=== PATIENT | female | born 1965 | race Caucasian/White ===

== ENCOUNTER → 2021-05-01 | Outpatient (CLI) | payer MEDICARE, OTHER ==
[2021-05-01 23:08] LABS: Basophils # (A) 0.07 X 10*3/uL (0.00-0.10); Basophils % (A) 0.9 %; Eosinophils # (A) 0.17 X 10*3/uL (0.04-0.35); Eosinophils % (A) 2.2 %; HGB 12.2 g/dL (12.0-15.0); Lymphocytes # (A) 3.86 X 10*3/uL (0.90-5.00); Lymphocytes % (A) 49.5 %; MCHC 30.5 g/dL (32.0-37.0); MCV 98.3 fL (80.0-97.0); Mean Platelet Volume 11.7 fL (9.5-12.2); Monocytes # (A) 0.42 X 10*3/uL (0.20-1.00); Monocytes % (A) 5.4 %; Neutrophils # (A) 3.25 X 10*3/uL (1.80-7.70); Neutrophils % (A) 41.6 %; Platelet Count 288 X 10*3/uL (140-440); RBC 4.07 X 10*6/uL (4.10-5.20); RDW 13.2 % (11.5-14.5)
[2021-05-02 01:21] LABS: African American GFR (CKD) 66.4 (60.0-200.0); Albumin 4.3 g/dL (3.80-4.90); Albumin/Globulin Ratio 1.65 (1.60-3.17); Anion Gap 9.6 mmol/L (4.00-12.00); BUN/Creat Ratio 12.73 Ratio (12.00-20.00); Calcium 9.7 mg/dL (8.7-10.3); Carbon Dioxide 23.4 mmol/L (21.6-31.8); Globulin 2.6 g/dL (1.6-3.3); Non-African American GFR(CKD) 57.3 (60.0-200.0); Potassium 4.4 mmol/L (3.5-5.5); Total Bilirubin 0.3 mg/dL (0.3-1.2); Total Protein 6.9 g/dL (6.2-8.2)
== END | disposition home or self-care (01) ==
LOC: LABWHC1 14:41
PROVIDERS: ATTEND Nurse Practitioner
DX: R10.9 Unspecified abdominal pain (principal)
CPT/HCPCS: 36415; 80053; 85025

== ENCOUNTER 2021-07-17 09:59 | Day surgery (SDC) | payer MEDICARE, OTHER ==
[2021-07-12 13:04] VITALS: BMI 27.4
[~2021-07-17 09:59] MED LIST: LACTATED RINGERS 1,000 ML IV SCH; LIDOCAINE 1% (10MG/ML) FOR IV START INTRADERMA PRN
[2021-07-17 10:26] VITALS: RESP 16; TEMP 97.7
[2021-07-17 10:39] LABS: Glucose,Whole Blood 192 mg/dL (75-99)
[2021-07-17] MEDS ORDERED: PROPOFOL 10 MG/ML 20 ML VIAL IV ONE (11:39)
[2021-07-17] MEDS ORDERED: LIDOCAINE 1% INJ 10MG/ML (20 ML MDV) ONE (11:39)
--- NOTE | 2021-07-17 11:48 | P.GSHP ---
History of Present Illness H&P Date: 07/17/21 Chief Complaint: GERD This a 55-year-old female who presents today for EGD. She's had some complaints of GERD. Past Medical History Past Medical History: Diabetes Mellitus, GERD/Reflux, Sleep Apnea/CPAP/BIPAP Additional Past Medical History / Comment(s): C-PAP History of Any Multi-Drug Resistant Organisms: None Reported Past Surgical History: Section Additional Past Surgical History / Comment(s): Ovary removed Past Anesthesia/Blood Transfusion Reactions: No Reported Reaction Past Psychological History: Anxiety, Depression Smoking Status: Former smoker Past Alcohol Use History: Daily Additional Past Alcohol Use History / Comment(s): QUIT SMOKING FEBRUARY 2021, HX OF 1PPD., STARTED SMOKING AGE 15. STATES 2-3 BEERS DAY. Past Drug Use History: Marijuana Additional Drug Use History / Comment(s): HX CRACK COCAINE., CURRENT MARIJUANA USE. - Past Family History Father Family Medical History: Cancer Additional Family Medical History / Comment(s): LUNG CANCER Medications and Allergies Home Medications Medication Instructions Recorded Confirmed Type Atorvastatin [Lipitor] 40 mg PO DAILY 07/12/21 07/17/21 History DULoxetine HCL [Cymbalta] 60 mg PO BID 07/12/21 07/17/21 History Fenofibrate Nanocrystallized 145 mg PO DAILY 07/12/21 07/17/21 History [Fenofibrate] Gabapentin [Neurontin] 800 mg PO BID 07/12/21 07/17/21 History Insulin Aspart [NovoLOG Flexpen] 5 units SQ BID-W/MEALS 07/12/21 07/17/21 History Insulin Degludec [Tresiba 15 units SQ HS 07/12/21 07/17/21 History Flextouch U-100] Insulin Degludec [Tresiba 30 units SQ QAM 07/12/21 07/17/21 History Flextouch U-100] Linaclotide [Linzess] 290 mcg PO DAILY 07/12/21 07/17/21 History Metoclopramide [Reglan] 10 mg PO HS 07/12/21 07/17/21 History Pantoprazole Sodium 40 mg PO DAILY 07/12/21 07/17/21 History Stool Softner 1 tab PO DAILY 07/12/21 07/17/21 History buPROPion HCL [Wellbutrin XL] 300 mg PO DAILY 07/12/21 07/17/21 History buPROPion XL [Wellbutrin XL] 150 mg PO DAILY 07/12/21 07/17/21 History metFORMIN HCL [Glucophage] 1,000 mg PO HS 07/12/21 07/17/21 History Allergies Allergy/AdvReac Type Severity Reaction Status Date / Time No Known Allergies Allergy Verified 07/17/21 10:22 Surgical - Exam Vital Signs Temp Pulse Resp BP Pulse Ox 97.7 F 62 16 171/74 93 L 07/17/21 10:25 07/17/21 10:25 07/17/21 10:25 07/17/21 10:25 07/17/21 10:25 - General well developed, well nourished, no distress - Eyes PERRL - ENT normal pinna - Neck no masses - Respiratory normal expansion - Cardiovascular Rhythm: regular - Abdomen Abdomen: soft, non tender Results - Labs Abnormal Lab Results - Last 24 Hours (Table) 07/17/21 Range/Units 10:34 POC Glucose (mg/dL) 192 H (75-99) mg/dL Assessment and Plan Assessment: GERD. We'll perform EGD.
--- NOTE | 2021-07-17 11:50 | P.OP ---
Date of Procedure: 07/17/21 Preoperative Diagnosis: GERD Postoperative Diagnosis: Gastroparesis Antral gastritis Procedure(s) Performed: EGD Anesthesia: MAC Surgeon: Marcio Morris Pathology: other (Antrum) Condition: stable Disposition: PACU Description of Procedure: Patient's placed on the endoscopy table in the lateral position. She received IV sedation. The gastroscope placed oropharynx passed in the esophagus and stomach. Patient had a large amount of retained food. The antrum was visualized. This appeared mildly inflamed. Biopsies performed. Scope was then retroflexed remainder some appeared normal. There is no significant hiatal hernia. The GE junction was at 40 cm. The distal esophagus appeared normal. T he proximal esophagus appeared normal. Scope was withdrawn for patient.
[2021-07-17 12:10] VITALS: BP 131/68; PULSE 69
== END 2021-07-17 12:29 | disposition home or self-care (01) ==
LOC: ORWHC2ENDO 09:59
PROVIDERS: ATTEND Surgery
DX: K31.84 Gastroparesis (principal); K29.50 Unspecified chronic gastritis without bleeding; G47.33 Obstructive sleep apnea (adult) (pediatric); F41.8 Other specified anxiety disorders; Z79.4 Long term (current) use of insulin; E11.43 Type 2 diabetes mellitus with diabetic autonomic (poly)neuropathy; Z80.1 Family history of malignant neoplasm of trachea, bronchus and lung; Z99.81 Dependence on supplemental oxygen; Z87.891 Personal history of nicotine dependence; Z90.721 Acquired absence of ovaries, unilateral
CPT/HCPCS: 88305; 43239; J2001; J2704

== ENCOUNTER 2021-08-02 14:05 | Emergency (ER) | payer MEDICARE, OTHER ==
[2021-08-02] MEDS ORDERED: PANTOPRAZOLE 40 MG/10 ML VIAL IVP STA (14:29)
[2021-08-02] MEDS ORDERED: SODIUM CHLORIDE 0.9% 500 ML 500 ML IV STA (14:29)
[2021-08-02] MEDS ORDERED: ONDANSETRON 4 MG/2 ML VIAL IVP STA (14:29)
[2021-08-02 15:12] LABS: Basophils # (A) 0.1 k/uL (0-0.2); Basophils % (A) 1 %; Eosinophils % (A) 0 %; Lymphocytes # (A) 2.9 k/uL (1.0-4.8); Lymphocytes % (A) 25 %; MCH 32.1 pg (25.0-35.0); MCHC 32.5 g/dL (31.0-37.0); MCV 98.7 fL (80.0-100.0); Mean Platelet Volume 8.3; Monocytes # (A) 0.4 k/uL (0-1.0); Monocytes % (A) 3 %; Neutrophils # (A) 7.9 k/uL (1.3-7.7); Neutrophils % (A) 67 %; Platelet Count 339 k/uL (150-450); RBC 4.67 m/uL (3.80-5.40); WBC 11.8 k/uL (3.8-10.6)
--- NOTE | 2021-08-02 15:19 | ED ---
Abdominal Pain HPI - General Chief Complaint: Abdominal Pain Stated Complaint: Abd Pain,Nausea Time Seen by Provider: 08/02/21 14:21 Source: patient Mode of arrival: wheelchair Limitations: no limitations - History of Present Illness Initial Comments: Patient is a 55-year-old female with history of diabetes, gastroparesis, presenting to the emergency Department with complaints of upper epigastric pain along with nausea and vomiting over the past 2 days. She denies any radiation of the pain, no chest pain or short of breath, no fevers. She denies any diarrhea. She states she recently was diagnosed with gastroparesis. She also recently had a stay at [facility] for similar issue. She does admit to being a drinker, last drink was 2 days ago. She states she has been taking her medications. She denies any fevers or chills. She admits to history of a single ovary removed, no other abdominal surgeries. Patient has no further complaints at this time. Upon arrival to the ER, her vitals are stable. - Related Data Home Medications Medication Instructions Recorded Confirmed Atorvastatin [Lipitor] 40 mg PO DAILY 07/12/21 08/02/21 DULoxetine HCL [Cymbalta] 60 mg PO BID 07/12/21 08/02/21 Fenofibrate Nanocrystallized 145 mg PO DAILY 07/12/21 08/02/21 [Fenofibrate] Gabapentin [Neurontin] 800 mg PO BID 07/12/21 08/02/21 Insulin Aspart [NovoLOG Flexpen] 5 units SQ BID-W/MEALS 07/12/21 08/02/21 Insulin Degludec [Tresiba 15 units SQ HS 07/12/21 08/02/21 Flextouch U-100] Insulin Degludec [Tresiba 30 units SQ DAILY 07/12/21 08/02/21 Flextouch U-100] Linaclotide [Linzess] 290 mcg PO DAILY 07/12/21 08/02/21 Metoclopramide [Reglan] 10 mg PO HS 07/12/21 08/02/21 Pantoprazole Sodium 40 mg PO DAILY 07/12/21 08/02/21 buPROPion HCL [Wellbutrin XL] 300 mg PO DAILY 07/12/21 08/02/21 buPROPion XL [Wellbutrin XL] 150 mg PO DAILY 07/12/21 08/02/21 metFORMIN HCL [Glucophage] 1,000 mg PO HS 07/12/21 08/02/21 Docusate [Colace] 100 mg PO DAILY 08/02/21 08/02/21 Latanoprost [Xalatan 0.005%] 1 drop BOTH EYES HS 08/02/21 08/02/21 Previous Rx's Medication Instructions Recorded Cephalexin [Keflex] 500 mg PO BID 5 Days #10 cap 08/02/21 Ondansetron Odt [Zofran Odt] 4 mg PO Q8HR PRN #10 tab 08/02/21 Allergies Allergy/AdvReac Type Severity Reaction Status Date / Time No Known Allergies Allergy Verified 08/02/21 17:45 Review of Systems ROS Statement: Those systems with pertinent positive or pertinent negative responses have been documented in the HPI. ROS Other: All systems not noted in ROS Statement are negative. Past Medical History Past Medical History: Diabetes Mellitus, GERD/Reflux, Sleep Apnea/CPAP/BIPAP Additional Past Medical History / Comment(s): C-PAP History of Any Multi-Drug Resistant Organisms: None Reported Past Surgical History: Section Additional Past Surgical History / Comment(s): Ovary removed Past Anesthesia/Blood Transfusion Reactions: No Reported Reaction Past Psychological History: Anxiety, Depression Smoking Status: Former smoker Past Alcohol Use History: Daily Past Drug Use History: Marijuana - Past Family History Father Family Medical History: Cancer Additional Family Medical History / Comment(s): LUNG CANCER General Exam - General Exam Comments Initial Comments: GENERAL: Patient is well-developed and well-nourished. Patient is nontoxic and in mild distress. HEAD: Atraumatic, normocephalic. EYES: Pupils equal round and reactive to light, extraocular movements intact, sclera anicteric, conjunctiva are normal. Eyelids were unremarkable. ENT: TMs normal, nares patent, oropharynx clear without exudates. Moist mucous membranes. NECK: Normal range of motion, supple without lymphadenopathy or JVD. LUNGS: Unlabored respirations. Breath sounds clear to auscultation bilaterally and equal. No wheezes rales or rhonchi. HEART: Regular rate and rhythm without murmurs, rubs or gallops. ABDOMEN: Soft, epigastric pain on palpation, normoactive bowel sounds. No guarding, no rebound. No masses appreciated. : Deferred MUSCULOSKELETAL: Normal extremities with adequate strength and normal range of motion, no pitting or edema. No clubbing or cyanosis. NEUROLOGICAL: Patient is alert and oriented x 3. Motor and sensory are also intact. Cranial nerves II through XII grossly intact. Symmetrical smile. Normal speech, normal gait. PSYCH: Normal mood, normal affect. SKIN: Warm, Dry, normal turgor, no rashes or lesions noted. Limitations: no limitations Course Vital Signs 08/02/21 08/02/21 08/02/21 14:12 15:56 17:33 Temperature 97.9 F Pulse Rate 67 62 83 Respiratory 18 20 20 Rate Blood Pressure 147/76 195/68 126/79 O2 Sat by Pulse 98 95 96 Oximetry Medical Decision Making - Medical Decision Making Patient is a 55-year-old female with history of diabetes, GERD, recently diagnosed with gastroparesis, presenting with epigastric pain and nausea and vomiting over the past 2 days. No fevers, vital signs are stable. Labs show a white count 11.8, is most likely reactive, glucose is 292, serum alcohol was negative, acetone is negative. Urine is positive for nitrates, 3+ ketones and 4+ glucose. Patient was given a total of a liter and half of fluids, Protonix, Zofran and pain control. She reports improvement in her symptoms. I also gave her 1 g Rocephin for UTI. This is pending for culture. I discussed with patient that she should follow-up with Dr. Francis regarding this new gastroparesis diagnosis. I also recommended limiting her alcohol intake and avoid large meals. Continue to increase her fluid intake. I will give her prescription for Zofran for any additional nausea as well as Keflex for her UTI. She is in agreement with this plan of care and is stable for discharge. Return parameters were discussed with her and she verbalized understanding. Case discussed with Dr. Mccarthy. - Lab Data Result diagrams: 08/02/21 14:54 08/02/21 14:54 Lab Results 08/02/21 08/02/21 08/02/21 Range/Units 14:54 14:54 14:54 WBC 11.8 H (3.8-10.6) k/uL RBC 4.67 (3.80-5.40) m/uL Hgb 15.0 (11.4-16.0) gm/dL Hct 46.0 (34.0-46.0) % MCV 98.7 (80.0-100.0) fL MCH 32.1 (25.0-35.0) pg MCHC 32.5 (31.0-37.0) g/dL RDW 14.0 (11.5-15.5) % Plt Count 339 (150-450) k/uL MPV 8.3 Neutrophils % 67 % Lymphocytes % 25 % Monocytes % 3 % Eosinophils % 0 % Basophils % 1 % Neutrophils # 7.9 H (1.3-7.7) k/uL Lymphocytes # 2.9 (1.0-4.8) k/uL Monocytes # 0.4 (0-1.0) k/uL Eosinophils # 0.0 (0-0.7) k/uL Basophils # 0.1 (0-0.2) k/uL PT 10.3 (9.0-12.0) sec INR 1.0 (<1.2) APTT 23.7 (22.0-30.0) sec Sodium (137-145) mmol/L Potassium (3.5-5.1) mmol/L Chloride (98-107) mmol/L Carbon Dioxide (22-30) mmol/L Anion Gap mmol/L BUN (7-17) mg/dL Creatinine (0.52-1.04) mg/dL Est GFR (CKD-EPI)AfAm (>60 ml/min/1.73 sqM) Est GFR (CKD-EPI)NonAf (>60 ml/min/1.73 sqM) Glucose (74-99) mg/dL Plasma Lactic Acid Lai (0.7-2.0) mmol/L Calcium (8.4-10.2) mg/dL Total Bilirubin (0.2-1.3) mg/dL AST (14-36) U/L ALT (4-34) U/L Alkaline Phosphatase (38-126) U/L Total Protein (6.3-8.2) g/dL Albumin (3.5-5.0) g/dL Amylase (30-110) U/L Lipase (23-300) U/L Urine Color Yellow Urine Appearance Clear (Clear) Urine pH 5.5 (5.0-8.0) Ur Specific [place] 1.027 (1.001-1.035) Urine Protein 1+ H (Negative) Urine Glucose (UA) 4+ H (Negative) Urine Ketones 3+ H (Negative) Urine Blood Negative (Negative) Urine Nitrite Positive H (Negative) Urine Bilirubin Negative (Negative) Urine Urobilinogen <2.0 (<2.0) mg/dL Ur Leukocyte Esterase Small H (Negative) Urine RBC 1 (0-5) /hpf Urine WBC 12 H (0-5) /hpf Ur Squamous Epith Cells 4 (0-4) /hpf Urine Bacteria Occasional H (None) /hpf Serum Alcohol mg/dL Acetone, Qual (Negative) 08/02/21 08/02/21 Range/Units 14:54 14:54 WBC (3.8-10.6) k/uL RBC (3.80-5.40) m/uL Hgb (11.4-16.0) gm/dL Hct (34.0-46.0) % MCV (80.0-100.0) fL MCH (25.0-35.0) pg MCHC (31.0-37.0) g/dL RDW (11.5-15.5) % Plt Count (150-450) k/uL MPV Neutrophils % % Lymphocytes % % Monocytes % % Eosinophils % % Basophils % % Neutrophils # (1.3-7.7) k/uL Lymphocytes # (1.0-4.8) k/uL Monocytes # (0-1.0) k/uL Eosinophils # (0-0.7) k/uL Basophils # (0-0.2) k/uL PT (9.0-12.0) sec INR (<1.2) APTT (22.0-30.0) sec Sodium 136 L (137-145) mmol/L Potassium 3.9 (3.5-5.1) mmol/L Chloride 97 L (98-107) mmol/L Carbon Dioxide 25 (22-30) mmol/L Anion Gap 14 mmol/L BUN 15 (7-17) mg/dL Creatinine 0.70 (0.52-1.04) mg/dL Est GFR (CKD-EPI)AfAm >90 (>60 ml/min/1.73 sqM) Est GFR (CKD-EPI)NonAf >90 (>60 ml/min/1.73 sqM) Glucose 292 H (74-99) mg/dL Plasma Lactic Acid Lai 1.9 (0.7-2.0) mmol/L Calcium 10.4 H (8.4-10.2) mg/dL Total Bilirubin 0.6 (0.2-1.3) mg/dL AST 28 (14-36) U/L ALT 22 (4-34) U/L Alkaline Phosphatase 91 (38-126) U/L Total Protein 8.7 H (6.3-8.2) g/dL Albumin 5.0 (3.5-5.0) g/dL Amylase 52 (30-110) U/L Lipase <10 L (23-300) U/L Urine Color Urine Appearance (Clear) Urine pH (5.0-8.0) Ur Specific [place] (1.001-1.035) Urine Protein (Negative) Urine Glucose (UA) (Negative) Urine Ketones (Negative) Urine Blood (Negative) Urine Nitrite (Negative) Urine Bilirubin (Negative) Urine Urobilinogen (<2.0) mg/dL Ur Leukocyte Esterase (Negative) Urine RBC (0-5) /hpf Urine WBC (0-5) /hpf Ur Squamous Epith Cells (0-4) /hpf Urine Bacteria (None) /hpf Serum Alcohol <10 mg/dL Acetone, Qual Negative (Negative) Disposition Clinical Impression: Epigastric abdominal pain, Nausea and vomiting, UTI (urinary tract infection), Dehydration Disposition: HOME SELF-CARE Condition: Stable Instructions (If sedation given, give patient instructions): Abdominal Pain (ED) Additional Instructions: Please return to the Emergency Department if symptoms worsen or any other concerns. Please continue with your already prescribed medications. May take Zofran for nausea. Take antibiotic for UTI as prescribed, finish entire course. Follow-up with Dr. Morris as discussed. Prescriptions: Cephalexin [Keflex] 500 mg PO BID 5 Days #10 cap Ondansetron Odt [Zofran Odt] 4 mg PO Q8HR PRN #10 tab PRN Reason: Nausea Is patient prescribed a controlled substance at d/c from ED?: No Referrals: Remy Llanes MD [Primary Care Provider] - 1-2 days Marcio Morris MD [STAFF PHYSICIAN] - 1-2 days Time of Disposition: 18:15
[2021-08-02 15:22] LABS: ALT 22 U/L (4-34); AST 28 U/L (14-36); African American GFR (CKD) >90 (>60 ml/min/1.73 sqM); Alcohol <10 mg/dL; Alkaline Phosphatase 91 U/L (38-126); Amylase 52 U/L (30-110); Anion Gap 14 mmol/L; Blood Urea Nitrogen 15 mg/dL (7-17); Calcium 10.4 mg/dL (8.4-10.2); Carbon Dioxide 25 mmol/L (22-30); Chloride 97 mmol/L (98-107); Glucose 292 mg/dL (74-99); Lipase <10 U/L (23-300); Non-African American GFR(CKD) >90 (>60 ml/min/1.73 sqM); Partial Thromboplastin Time 23.7 sec (22.0-30.0); Potassium 3.9 mmol/L (3.5-5.1); Prothrombin Time 10.3 sec (9.0-12.0); Sodium 136 mmol/L (137-145); Total Bilirubin 0.6 mg/dL (0.2-1.3); Total Protein 8.7 g/dL (6.3-8.2)
[2021-08-02] MEDS ORDERED: MORPHINE SULFATE 4 MG/ML SYRINGE IVP STA (15:35)
--- NOTE | 2021-08-02 15:57 | US ---
EXAMINATION TYPE: US gallbladder DATE OF EXAM: 08/02/2021 COMPARISON: NONE CLINICAL HISTORY: pain. EXAM MEASUREMENTS: Liver Length: 13.4 cm Gallbladder Wall: 0.2 cm CBD: 0.4 cm Right Kidney: 9.8 x 4.6 x 5.5 cm Pancreas: Partially obscured by bowel gas, portions visualized wnl Liver: wnl Gallbladder: wnl as seen Evidence for sonographic Faria's sign: no CBD: wnl Right Kidney: wnl IMPRESSION: No distinct abnormality seen.
[2021-08-02 15:58] VITALS: RESP 20
[2021-08-02 16:27] LABS: Appearance,Urine Clear (Clear); Bacteria,Urine Occasional /hpf; Bilirubin,Urine Negative (Negative); Blood,Urine Negative (Negative); Color,Urine Yellow; Glucose,Urine (UA) 4+ (Negative); Leukocyte Esterase,Urine Small (Negative); Nitrite,Urine Positive (Negative); PH, Urine 5.5 (5.0-8.0); Protein,Urine 1+ (Negative); RBC,Urine 1 /hpf (0-5); Specific Gravity,Urine 1.027 (1.001-1.035); Squamous Epithelial Cell,Urine 4 /hpf (0-4); Urobilinogen,Urine <2.0 mg/dL (<2.0); WBC,Urine 12 /hpf (0-5)
[2021-08-02 16:33] LABS: Ketones,Urine 3+ (Negative)
[2021-08-02] MEDS ORDERED: SODIUM CHLORIDE 0.9% 1,000 ML IV STA (17:16)
[2021-08-02] MEDS ORDERED: cefTRIAXone IN SWFI 1,000 MG/10 ML SYRINGE IVP STA (17:16)
[2021-08-02 18:28] VITALS: BP 164/65; PULSE 69; TEMP 98.1
== END 2021-08-02 18:28 | disposition home or self-care (01) ==
LOC: EC 14:05
DX: N39.0 Urinary tract infection, site not specified (principal); R11.2 Nausea with vomiting, unspecified; E86.0 Dehydration; E11.9 Type 2 diabetes mellitus without complications; K21.9 Gastro-esophageal reflux disease without esophagitis; F41.9 Anxiety disorder, unspecified; F32.9 Major depressive disorder, single episode, unspecified; F12.90 Cannabis use, unspecified, uncomplicated; Z79.4 Long term (current) use of insulin; Z87.891 Personal history of nicotine dependence
CPT/HCPCS: 99284; 96374; 96375 ×3; 96361 ×3; 36415; 80053; 82150; 82009; 83605; 83690; 85025; 85610; 85730; 81001; 87086; 76705; G0480; J2270; J2405; J0696; C9113; 80320; 87077; 87186

== ENCOUNTER → 2021-08-11 | Outpatient (CLI) | payer OTHER ==
--- NOTE | 2021-08-16 09:49 | P.ARTDOP ---
Arterial Doppler LOWER EXTREMITY ARTERIAL DOPPLER: DATE OF SERVICE: 08/11/2021 Reason for study: Calf claudication. Doppler waveforms: Multiphasic bilaterally throughout. Pulse volume recording: []. Pressure gradients: None. Ankle-brachial indices: Greater than 1 bilaterally. Toe brachial indices: 0.67 on the right, 0.79 on the left Impression: Normal study. Does not correlate with symptoms..
== END | disposition home or self-care (01) ==
LOC: RADUSWWP 09:46
PROVIDERS: ATTEND Family Medicine
DX: I73.9 Peripheral vascular disease, unspecified (principal)
CPT/HCPCS: 93922

== ENCOUNTER → 2022-03-29 | Outpatient (CLI) | payer OTHER ==
--- NOTE | 2022-04-02 09:48 | MM ---
Reason for exam: screening (asymptomatic). History: Patient is postmenopausal. Cyst aspiration of the left breast, 2001. Physical Findings: A clinical breast exam by your physician is recommended on an annual basis and results should be correlated with mammographic findings. MG Screening Mammo w CAD Bilateral CC and MLO view(s) were taken. The breast tissue is extremely dense which could obscure a lesion on mammography. There is no discrete abnormality. ASSESSMENT: Negative, BI-RAD 1 RECOMMENDATION: Routine screening mammogram of both breasts in 1 year.
== END | disposition home or self-care (01) ==
LOC: RADMAMWWP 12:54
PROVIDERS: ATTEND Family Medicine
DX: Z12.31 Encounter for screening mammogram for malignant neoplasm of breast (principal)
CPT/HCPCS: 77067

== ENCOUNTER → 2022-06-28 | Outpatient (CLI) | payer OTHER ==
[2022-06-28 16:58] LABS: African American GFR (CKD) 88.6 (60.0-200.0); Albumin 4.4 g/dL (3.8-4.9); Albumin/Globulin Ratio 1.49 (1.60-3.17); Anion Gap 16.5 mmol/L (10.00-18.00); BUN/Creat Ratio 13.7 Ratio (12.00-20.00); Blood Urea Nitrogen 11.8 mg/dL (9.0-27.0); Calcium 9.9 mg/dL (8.7-10.3); Carbon Dioxide 20.8 mmol/L (20.0-27.5); Non-African American GFR(CKD) 76.5 (60.0-200.0); Potassium 3.9 mmol/L (3.5-5.5); Total Bilirubin 0.2 mg/dL (0.30-1.20); Total Protein 7.4 g/dL (6.2-8.2)
[2022-06-28 16:59] LABS: T4, Free (Free Thyroxine) 1.31 ng/dL (0.800-1.800)
[2022-06-29 02:42] LABS: C-Peptide 1.88 ng/mL (0.81-3.85)
== END | disposition home or self-care (01) ==
LOC: LABWHC1 10:17
PROVIDERS: ATTEND Internal Medicine Endocrinology, Diabetes & Metabolism
DX: E10.65 Type 1 diabetes mellitus with hyperglycemia (principal)
CPT/HCPCS: 36415; 80053; 82607; 84439; 84443; 84681

== ENCOUNTER → 2022-10-02 | Day surgery (SDC) | payer MEDICARE, OTHER ==
[2022-09-27 09:45] VITALS: BMI 24.5
[~2022-10-02] MED LIST changes: +ALPRAZolam 0.25 MG TAB PO PRN; +ALPRAZolam 0.5 MG TAB PO PRN; +ASPIRIN 325 MG TAB PO PRN; +ATORVASTATIN 80 MG TAB PO ONE; +HEPARIN SODIUM 1,000 UN/ML (10ML VL) IV ONE; +HEPARIN SODIUM 1,000 UN/ML (10ML VL) ONE; +HEPARIN SODIUM,PORCINE 10,000 UNIT in SODIUM CHLORIDE 0.9% 1,000 ML IRRIGATION PRN; +HEPARIN SODIUM,PORCINE 2,500 UNIT in SODIUM CHLORIDE 0.9% 250 ML IRRIGATION PRN; +IOPAMIDOL-250 100ML BTL INTRAARTER ONE; +IOPAMIDOL-370 100ML BTL INJ ONE; +IV FLUID CONTINUATION 1,000 ML IV ONE; -LACTATED RINGERS 1,000 ML IV SCH; -LIDOCAINE 1% (10MG/ML) FOR IV START INTRADERMA PRN; +LIDOCAINE 1% INJ 10MG/ML (30 ML VIAL-PF) SQ ONE; +MIDAZOLAM 2 MG/2 ML VIAL IV ONE; +NITROGLYCERIN SL TABS 0.4 MG TAB SUBLINGUAL PRN; +RX INFO: IV CONTRAST WAS GIVEN 1 EACH MISC MISCELLANE PRN; +SODIUM CHLORIDE 0.9% 1,000 ML IV ONE; +SODIUM CHLORIDE 0.9% 1,000 ML IV SCH; +SODIUM CHLORIDE 0.9% 1,000 ML in EMPTY BAG 1 BAG IV ONE; +VERAPAMIL 2.5 MG/ML 2 ML AMP ONE; +VERAPAMIL SYRINGE (5 MG/10 ML) INTRAARTER ONE; +ZOLPIDEM 5 MG TAB PO PRN; +fentaNYL (PF) 50 MCG/ML 2 ML AMP ONE
[2022-10-02 06:58] VITALS: RESP 16; TEMP 97.7
[2022-10-02 07:25] LABS: Glucose,Whole Blood 88 mg/dL (70-110)
[2022-10-02] MEDS: BENZOCAINE SPRAY 1 CAN TOPICAL ONE ×2 (07:30→07:40)
[2022-10-02] MEDS: fentaNYL (PF) 50 MCG/ML 2 ML AMP IV ONE ×2 (07:40→07:43)
[2022-10-02] MEDS: MIDAZOLAM 2 MG/2 ML VIAL IV ONE ×2 (07:43→07:44)
--- NOTE | 2022-10-02 07:53 | P.PCN ---
Date of Procedure: 10/02/22 Operative Findings: TRANSESOPHAGEAL ECHOCARDIOGRAM LCSW: MRAIA E LANE MD, RPVI INDICATION: Valvular heart disease with aortic and mitral regurgitation SEDATION: Conscious sedation COMPLICATION: None LEVEL OF SEDATION Moderate to sedation of 10 minutes PROCEDURE DESCRIPTION: After obtaining an informed consent, the patient was brought to transesophageal echocardiogram room. Pulse oximetry and heart monitors were attached to the patient. The patient throat was sprayed using lidocaine. The patient was turned into left lateral position. After that a bite guard was placed. After an appropriate conscious sedation was initiated, the transesophageal echocardiogram was advanced through a bite guard into the mid esophagus. A 2-D echocardiogram images, color Doppler images, continuous wave images, pulse-wave images, of various cardiac structure were performed. After that the transesophageal echocardiogram probe was advanced into the stomach and fixed to obtain transgastric view was. The probe was brought into the mid esophagus. Inter-atrial septum was interrogated using 2D images, color Doppler images, and then contrast study. After that transesophageal echocardiogram was withdrawn out and upon withdrawing the descending thoracic aorta all the way up to the arch was evaluated. FINDING: Normal biventricular dimension and systolic function. The LV ejection fraction is about 55%. The right and left atrium appears to be dilated. Left atrial appendage appeared to be free from any thrombus. The interatrial septum appeared to be intact. The aortic valve is trileaflet valve was evidence of moderate aortic insufficiency only. The mitral valve also appeared to be mildly thickened and prolapsing was evidence of moderate mitral regurgitation. There is moderate tricuspid regurgitation was identified. The pulmonary artery systolic pressure was not calculated. No evidence of pericardial effusion identified. CONCLUSION: 1. Normal biventricular dimension and systolic function. The left ventricle systolic function appeared to be at 55% 2. Intact interatrial septum. Intact left atrial appendage. 3. Trileaflet aortic valve was evidence of moderate aortic insufficiency only. No evidence of reversible flow was seen in the descending aorta 4. Thickened anterior and posterior mitral leaflet with evidence of moderate mitral regurgitation on 5. Moderate tricuspid regurgitation 6. No evidence of pericardial effusion
--- NOTE | 2022-10-02 08:37 | P.PCN ---
Date of Procedure: 10/02/22 Operative Findings: CARDIAC CATHETERIZATION PERFORMING PHYSICIAN: Bill Ashby MD, RPVI PROCEDURE PERFORMED: 1. Selective right and left coronary angiogram 2. Left heart catheterization INDICATION: This is a 57-year-old female patient was diagnosis and he was valvular heart disease was moderate to severe mitral and aortic regurgitation. She was brought today to undergo a SABINO and heart catheterization COMPLICATION: None APPROACH: Right radial artery LEVEL OF SEDATION: Moderate with a sedation length of 10 minutes PROCEDURE DESCRIPTION: After obtaining an informed consent, the patient was brought to cardiac cardiovascular lab director. Local anesthesia was performed using lidocaine subcutaneously. The right radial artery was cannulated using Seldinger technique, the guidewire passed easily, following that we advanced a 5-Slovak sheath dilator assembly, the wire and dilator were removed and sheath was flushed. Following that, 2 mg of verapamil along with 5000 unit heparin were given. Selective right and left coronary angiogram using a 6-Slovak JR4 and JL 3.5 catheters. Following that we did left heart catheterization using 6-Slovak pigtail catheter. The procedure was completed there was no complication. SELECTIVE CORONARY ANGIOGRAM: The right coronary artery: Large caliber vessel and dominant vessel. The mid RCA has a long tubular lesion up to about 50% in the midportion and distally appears to be angiographically normal and bifurcates into PDA and PLV branches. Left main: Is angiographically normal. Bifurcates into LCx and LAD The left circumflex: Large caliber vessel nondominant vessel. The LCx has mild disease only. Gives rises into an OM1 which appears to have mild disease only. The left anterior descending artery: The LAD appeared to have mild disease in the proximal portion gives rise into a large diagonal branch which seems to be angiographically normal [] HEMODYNAMICS: The LVEDP was 20 mmHg was no significant gradient across aortic valve CONCLUSION: 1. Intermediate lesion involving the mid RCA with a tubular lesion up to about at least 60% in the midportion 2. Elevated left-sided filling pressure with LVEDP of 20 mmHg POSTPROCEDURE MANAGEMENT: Continue the current medical regimen and without ischemia in the RCA territory.
--- NOTE | 2022-10-02 08:41 | P.PCN ---
Date of Procedure: 10/02/22 Operative Findings: AN ABDOMINAL AORTOGRAM AND BILATERAL LOWER EXTREMITIES RUNOFF PERFORMING PHYSICIAN: Bill Ashby MD PROCEDURE PERFORMED: 1. An abdominal aortogram 2. Bilateral lower extremities runoff INDICATION: Bilateral lower surface intermittent claudication. 7-year-old female patient who underwent an arterial duplex study came in to be abnormal showing severe bilateral SFA disease COMPLICATION: None LEVEL OF SEDATION: Moderate was sedation length of 12 minutes APPROACH: Right common femoral artery PROCEDURE DESCRIPTION: After obtaining informed consent and explaining the procedure benefits, risks, and complications, the patient was brought to the cardiac irrigation laborer. The right groin was prepped and draped in sterile fashion. The right common femoral artery was cannulated using micropuncture technique, under ultrasound guidance. A micropuncture wire was advanced, and the micropuncture sheath was advanced over the wire, then the micropuncture sheath was exchanged over an 0.35 wire into a 5-Togolese sheath dilator assembly then the wire and dilator were removed and sheath was flushed. We did an abdominal aortogram and bilateral lower extremities runoff using 5- Togolese pigtail catheter using a power injection. The catheter was initially placed at the level of the renal arteries, and it was pulled into above the bifurcation of the aorta into right and left common iliac arteries. The procedure was completed and there was no complications. SELECTIVE PERIPHERAL ANGIOGRAM: The abdominal aorta: Appears to have mild disease only The common iliac arteries: The right common iliac artery has intermediate lesion. The left common iliac artery appeared to be angiographically normal The external iliac arteries: The right and left external iliac arteries have mild disease only The internal iliac arteries: Both are patent The common femoral arteries: Both appear to have mild disease only Superficial femoral arteries: Appeared to have critical disease bilaterally Popliteal arteries: Have mild disease bilaterally Below the knees: Poorly visualized CONCLUSION: Critical bilateral SFA disease Intermediate lesion involving the right common artery
--- NOTE | 2022-10-02 12:31 | IR ---
EXAMINATION TYPE: IR angio abdominal w runoff DATE OF EXAM: 10/02/2022 COMPARISON: NONE HISTORY: Fluoroscopy time. Fluoroscopy was provided to the referring clinician.
[2022-10-02 16:19] VITALS: BP 136/83; PULSE 90
== END ==
LOC: CATHCVL 06:00 → MERGE 07:30
PROVIDERS: ATTEND Internal Medicine Interventional Cardiology
DX: I08.3 Combined rheumatic disorders of mitral, aortic and tricuspid valves (principal); I73.9 Peripheral vascular disease, unspecified; E11.9 Type 2 diabetes mellitus without complications; E78.5 Hyperlipidemia, unspecified; F17.210 Nicotine dependence, cigarettes, uncomplicated; Z79.899 Other long term (current) drug therapy
CPT/HCPCS: 93312; 93325; 93458; 75625; 75716; C1769; C1894; J2250; J2001; J3010; J1644; Q9966; Q9967; 36200

== ENCOUNTER 2022-10-10 11:46 | Day surgery (SDC) | payer MEDICARE, OTHER ==
[2022-10-08 14:58] VITALS: BMI 26.2
[~2022-10-10 11:46] MED LIST changes: -ALPRAZolam 0.5 MG TAB PO PRN; -ATORVASTATIN 80 MG TAB PO ONE; -HEPARIN SODIUM 1,000 UN/ML (10ML VL) IV ONE; -HEPARIN SODIUM 1,000 UN/ML (10ML VL) ONE; -HEPARIN SODIUM,PORCINE 10,000 UNIT in SODIUM CHLORIDE 0.9% 1,000 ML IRRIGATION PRN; -HEPARIN SODIUM,PORCINE 2,500 UNIT in SODIUM CHLORIDE 0.9% 250 ML IRRIGATION PRN; -IOPAMIDOL-250 100ML BTL INTRAARTER ONE; -IOPAMIDOL-370 100ML BTL INJ ONE; -IV FLUID CONTINUATION 1,000 ML IV ONE; -LIDOCAINE 1% INJ 10MG/ML (30 ML VIAL-PF) SQ ONE; -MIDAZOLAM 2 MG/2 ML VIAL IV ONE; -NITROGLYCERIN SL TABS 0.4 MG TAB SUBLINGUAL PRN; -RX INFO: IV CONTRAST WAS GIVEN 1 EACH MISC MISCELLANE PRN; -SODIUM CHLORIDE 0.9% 1,000 ML IV ONE; -SODIUM CHLORIDE 0.9% 1,000 ML IV SCH; -VERAPAMIL 2.5 MG/ML 2 ML AMP ONE; -VERAPAMIL SYRINGE (5 MG/10 ML) INTRAARTER ONE; -ZOLPIDEM 5 MG TAB PO PRN; -fentaNYL (PF) 50 MCG/ML 2 ML AMP ONE
[2022-10-10 12:14] LABS: Glucose,Whole Blood 137 mg/dL (70-110)
[2022-10-10] MEDS ORDERED: MIDAZOLAM 2 MG/2 ML VIAL IV ONE ×2 (14:32→15:37)
[2022-10-10] MEDS ORDERED: LIDOCAINE 1% INJ 10MG/ML (30 ML VIAL-PF) SQ ONE (14:36)
[2022-10-10] MEDS ORDERED: HEPARIN SODIUM 1,000 UN/ML (10ML VL) ONE (14:42)
[2022-10-10] MEDS: HEPARIN SODIUM 1,000 UN/ML (10ML VL) IV ONE ×2 (14:45→15:05)
[2022-10-10] MEDS ORDERED: NITROGLYCERIN 1000MCG/10ML SYRINGE INTRAARTER ONE (15:52)
[2022-10-10] MEDS ORDERED: niCARdipine Syringe (1,000 mcg/10 mL) INTRAARTER ONE (15:52)
[2022-10-10] MEDS ORDERED: IOPAMIDOL-250 100ML BTL INTRAARTER ONE (15:55)
--- NOTE | 2022-10-10 16:15 | P.PCN ---
Date of Procedure: 10/10/22 Operative Findings: PERCUTANEOUS PERIPHERAL INTERVENTION Performing physician Bill Ashby M.D. Procedure performed #1 Atherectomy of the left SFA using the CSI device #2 Intravascular ultrasound of the left SFA #3 Successful balloon angioplasty of the distal and proximal SFA using 5 mm drug-coated balloon with an excellent angiographic results #4 Left lower extremity angiogram and the right common femoral artery angiogram #5 Ultrasound-guided access of the right common femoral artery Indication This is a 57-year-old -Swazi female patient with diabetes who was experiencing bilateral lower except is intermittent claudication and she underwent an angiogram recently and that revealed critical bilateral SFA disease. She was brought today to undergo an intervention on the left SFA Approach Right common femoral artery Complications None Level of sedation Moderate with a sedation time of 84 minutes Procedure description After obtaining an informed consent the patient was brought to the cardiac landscape and yardwork laborer. The right common femoral artery was cannulated using micropuncture technique, a micropuncture wire passed easily then I placed a 6-Botswanan 70 cm sheath at the right common femoral artery. The right common femoral artery was predilated using 6-Botswanan short dilator initially. Subsequently I did selective left SFA using 035 stiff Glidewire with a backup support of 5-Botswanan rim catheter. After that the sheath was advanced over the wire and catheter to the left common femoral artery. I did left lower except the angiogram which showed critical disease involving the SFA in the proximal and mid and distal portion. The patient did have three-vessel runoff below the knee on the left side. I did intravascular ultrasound after I wire the lesions using 014 wire. The intravascular ultrasound revealed a diameter of 5 mm with a soft plaque. Atherectomy was performed using the CSI device after I exchanged my 014 regular wire into a long for atherectomy wire. The atherectomy was performed with 3 lesions under low and medial and high speed. After that balloon angioplasty was initially performed using 5 mm chocolate balloon. There was residual dissection. That was confirmed by intravascular ultrasound. After that I did decide to do drug-coated balloon for the lesions. The distal lesion was ballooned using 5.0 x 1 50 mm balloon and the proximal lesion was ballooned using 5.0 x 60 mm balloon. Both balloons were inflated under 3 minutes. There were inflated under 14 jaelyn. The final angiogram showed good angiographic results. Subsequently I did exchange my long sheath into short sheath using 035 stiff Glidewire. After that I did selective right common femoral artery angiogram. The procedure was completed without any complication Postprocedure management #1 dual antiplatelet therapy #2 aggressive cholesterol control #3 risk factors modification #4 follow-up with the patient
[2022-10-10] MEDS ORDERED: hydrALAZINE HCL 20 MG/ML 1 ML VIAL IVP STA (17:00)
[2022-10-10] MEDS ORDERED: hydrALAZINE HCL 20 MG/ML 1 ML VIAL ONE (17:16)
[2022-10-10 18:18] LABS: Glucose,Whole Blood 89 mg/dL (70-110)
[2022-10-10] MEDS: METOCLOPRAMIDE 10 MG TAB PO SCH ×2 (18:34→20:42)
[2022-10-10 20:08] LABS: Glucose,Whole Blood 100 mg/dL (70-110)
[2022-10-10] MEDS ORDERED: LATANOPROST 0.005% OPHTH DROPS 2.5 ML BTL BOTH EYES SCH (21:00)
[2022-10-10] MEDS: GABAPENTIN 400 MG CAP PO SCH (23:27)
[2022-10-11 03:59] VITALS: PULSE 72
[2022-10-11 06:06] LABS: Glucose,Whole Blood 96 mg/dL (70-110)
[2022-10-11] MEDS: METOCLOPRAMIDE 10 MG TAB PO SCH (06:12)
--- NOTE | 2022-10-11 07:51 | IR ---
EXAMINATION TYPE: IR vessel captain femoral popliteal DATE OF EXAM: 10/10/2022 COMPARISON: NONE HISTORY: Fluoroscopy time. Fluoroscopy was provided to the referring clinician.
[2022-10-11 08:06] LABS: Glucose,Whole Blood 113 mg/dL (70-110)
[2022-10-11] MEDS ORDERED: PATIENT'S OWN (Linaclotide [Linzess] 290 MCG Capsule) PO SCH (09:00)
[2022-10-11] MEDS ORDERED: CLOPIDOGREL 75 MG TAB PO SCH (09:00)
[2022-10-11] MEDS ORDERED: PANTOPRAZOLE 40 MG TABLET PO SCH (09:00)
[2022-10-11] MEDS ORDERED: INSULIN DETEMIR (LEVEMIR) 100 UNIT/ML SYR SQ SCH (09:00)
[2022-10-11] MEDS ORDERED: buPROPion XL 150 MG TAB.ER.24H PO SCH (09:00)
[2022-10-11] MEDS ORDERED: buPROPion XL 300 MG TAB.ER.24H PO SCH (09:00)
[2022-10-11] MEDS ORDERED: ATORVASTATIN 80 MG TAB PO SCH (09:00)
[2022-10-11] MEDS ORDERED: FENOFIBRATE 160 MG TAB PO SCH (09:00)
[2022-10-11] MEDS: GABAPENTIN 400 MG CAP PO SCH (09:04)
[2022-10-11 09:58] VITALS: BP 147/80; RESP 17; TEMP 98.3
[2022-10-11] MEDS ORDERED: ACETAMINOPHEN TAB 325 MG TAB PO PRN (09:58)
--- NOTE | 2022-10-11 12:17 | P.DS ---
Providers Attending physician: Bill Ashby Consults: 10/11/22 05:56 Consult Physician Routine Consulting Provider: Remy Llanes Consult Reason/Comments: Diabetes managment/medication adjustment Do you want consulting provider notified?: Yes Primary care physician: [facility] Course: The patient is a pleasant 57-year-old female patient was admitted to the hospital yesterday and underwent successful angioplasty of the left SFA from right groin approach. She was seen this morning. She is asymptomatic. I was able to feel bounding pulse in the left dorsalis pedis. The right groin is soft and nontender and with no bruises. The patient is going to discharge home on dual antiplatelet therapy and statin and I'll follow-up with the patient in a week in the office Patient Condition at Discharge: Stable Plan - Discharge Summary Discharge Rx Participant: No New Discharge Prescriptions: New Aspirin 81 mg PO DAILY #90 tab Continue Fenofibrate Nanocrystallized [Fenofibrate] 145 mg PO DAILY Latanoprost [Xalatan 0.005%] 1 drop BOTH EYES HS Pantoprazole [Protonix] 40 mg PO DAILY Metoclopramide [Reglan] 10 mg PO ACHS Gabapentin 800 mg PO TID Insulin Degludec [Tresiba] 20 units SQ DAILY Clopidogrel [Plavix] 75 mg PO DAILY Insulin Aspart [NovoLOG] 0 units SQ TID-W/MEALS buPROPion HCL [buPROPion HCL Xl] 150 mg PO DAILY buPROPion HCL [buPROPion HCL XL] 300 mg PO DAILY Linaclotide [Linzess] 290 mcg PO DAILY Atorvastatin [Lipitor] 80 mg PO DAILY metFORMIN HCL 1,000 mg PO BID Discontinued Aspirin 81 mg PO ONCE Discharge Medication List Fenofibrate Nanocrystallized [Fenofibrate] 145 mg PO DAILY 07/12/21 [History] Latanoprost [Xalatan 0.005%] 1 drop BOTH EYES HS 08/02/21 [History] Gabapentin 800 mg PO TID 09/27/22 [History] Insulin Aspart [NovoLOG] 0 units SQ TID-W/MEALS 09/27/22 [History] Insulin Degludec [Tresiba] 20 units SQ DAILY 09/27/22 [History] Linaclotide [Linzess] 290 mcg PO DAILY 09/27/22 [History] Metoclopramide [Reglan] 10 mg PO ACHS 09/27/22 [History] Pantoprazole [Protonix] 40 mg PO DAILY 09/27/22 [History] buPROPion HCL [buPROPion HCL XL] 300 mg PO DAILY 09/27/22 [History] buPROPion HCL [buPROPion HCL Xl] 150 mg PO DAILY 09/27/22 [History] Atorvastatin [Lipitor] 80 mg PO DAILY 10/08/22 [History] Clopidogrel [Plavix] 75 mg PO DAILY 10/08/22 [History] metFORMIN HCL 1,000 mg PO BID 10/10/22 [History] Aspirin 81 mg PO DAILY #90 tab 10/11/22 [Rx] Follow up Appointment(s)/Referral(s): Bill Ashby MD [STAFF PHYSICIAN] - 10/15/22 5:00 pm Patient Instructions/Handouts: Atherectomy (DC) Discharge Disposition: HOME SELF-CARE
== END 2022-10-11 10:55 | disposition home or self-care (01) ==
LOC: CATHCVL 11:46 → 3SCARD 15:56 → CATHCVL 10-11 10:55
PROVIDERS: ATTEND Internal Medicine Interventional Cardiology
DX: I70.213 Atherosclerosis of native arteries of extremities with intermittent claudication, bilateral legs (principal); E11.51 Type 2 diabetes mellitus with diabetic peripheral angiopathy without gangrene; I35.1 Nonrheumatic aortic (valve) insufficiency; E78.5 Hyperlipidemia, unspecified; F17.210 Nicotine dependence, cigarettes, uncomplicated; Z79.82 Long term (current) use of aspirin; Z79.4 Long term (current) use of insulin; Z79.84 Long term (current) use of oral hypoglycemic drugs; Z79.899 Other long term (current) drug therapy
CPT/HCPCS: 37225; 37252; C1894 ×2; C1769 ×6; C1714; C1725 ×2; C1753; C2623 ×2; J2250; J0360; J2001; J1644; Q9966

== ENCOUNTER 2022-10-17 08:51 | Day surgery (SDC) | payer MEDICARE, OTHER ==
[2022-10-16 10:49] VITALS: BMI 26.2
[~2022-10-17 08:51] MED LIST changes: +ALPRAZolam 0.5 MG TAB PO PRN; +HEPARIN SODIUM,PORCINE 10,000 UNIT in SODIUM CHLORIDE 0.9% 1,000 ML IRRIGATION PRN; +HEPARIN SODIUM,PORCINE 2,500 UNIT in SODIUM CHLORIDE 0.9% 250 ML IRRIGATION PRN; +ZOLPIDEM 5 MG TAB PO PRN
[2022-10-17] MEDS ORDERED: SODIUM CHLORIDE 0.9% 1,000 ML IV ONE (09:03)
[2022-10-17 09:24] LABS: Glucose,Whole Blood 84 mg/dL (70-110)
[2022-10-17 09:28] LABS: Basophils # (A) 0.1 k/uL (0-0.2); Basophils % (A) 1 %; Eosinophils # (A) 0.3 k/uL (0-0.7); Eosinophils % (A) 4 %; HCT 36.7 % (34.0-46.0); HGB 11.8 gm/dL (11.4-16.0); Lymphocytes # (A) 2.7 k/uL (1.0-4.8); Lymphocytes % (A) 40 %; MCH 31.3 pg (25.0-35.0); MCHC 32.2 g/dL (31.0-37.0); MCV 97.1 fL (80.0-100.0); Mean Platelet Volume 8.9; Monocytes # (A) 0.3 k/uL (0-1.0); Monocytes % (A) 4 %; Neutrophils # (A) 3.3 k/uL (1.3-7.7); Neutrophils % (A) 49 %; Platelet Count 281 k/uL (150-450); RBC 3.78 m/uL (3.80-5.40); RDW 12.5 % (11.5-15.5); WBC 6.7 k/uL (3.8-10.6)
[2022-10-17 10:03] LABS: African American GFR (CKD) >90 (>60 ml/min/1.73 sqM); Anion Gap 9 mmol/L; Blood Urea Nitrogen 11 mg/dL (7-17); Calcium 9.2 mg/dL (8.4-10.2); Carbon Dioxide 24 mmol/L (22-30); Chloride 110 mmol/L (98-107); Glucose 90 mg/dL (74-99); Non-African American GFR(CKD) >90 (>60 ml/min/1.73 sqM); Potassium 4.4 mmol/L (3.5-5.1); Sodium 143 mmol/L (137-145)
[2022-10-17] MEDS ORDERED: HEPARIN SODIUM 1,000 UN/ML (10ML VL) ONE (11:22)
[2022-10-17] MEDS ORDERED: niCARdipine 25 MG/10 ML VIAL ONE (11:29)
[2022-10-17] MEDS ORDERED: fentaNYL (PF) 50 MCG/ML 2 ML AMP ONE (11:35)
[2022-10-17] MEDS ORDERED: MIDAZOLAM 2 MG/2 ML VIAL IV ONE (11:44)
[2022-10-17] MEDS ORDERED: fentaNYL (PF) 50 MCG/ML 2 ML AMP IV ONE (11:44)
[2022-10-17] MEDS ORDERED: LIDOCAINE 1% INJ 10MG/ML (30 ML VIAL-PF) SQ ONE (11:52)
[2022-10-17] MEDS ORDERED: HEPARIN SODIUM 1,000 UN/ML (10ML VL) IV ONE (11:57)
[2022-10-17] MEDS ORDERED: NALOXONE 0.4 MG/ML 1 ML VIAL IVP PRN (13:16)
--- NOTE | 2022-10-17 13:25 | P.PCN ---
Date of Procedure: 10/17/22 Operative Findings: PERCUTANEOUS PERIPHERAL INTERVENTION Performing physician Bill Ashby M.D. Procedure performed #1 an atherectomy of the right SFA using the Hawk 1 device #2 successful balloon angioplasty of the right SFA using a drug-coated balloon with adjunctive use of intravascular ultrasound #3 successful stenting of the right external iliac artery using 8.0 x 40 mm self-expandable stent with adjunctive use of intravascular ultrasound #4 gradient measurement across the right external iliac artery #5 right lower extremities angiogram #6 ultrasound-guided access of the left common femoral artery and selective left common femoral artery angiogram Indication This is a 57-year-old female patient with known bilateral lower extremities peripheral arterial disease who underwent recently an angiogram for bilateral lower extremities intermittent claudication appeared to be interfering with her daily activities. She underwent an angiogram that revealed severe bilateral SFA disease and severe disease involving the right external iliac artery Approach Left common femoral artery Complications None Level of sedation Moderate with a sedation time of 71 minutes Procedure description After obtaining an informed consent the patient was brought to the cardiac labor arbitrator. The left common femoral artery was cannulated using micropuncture technique under ultrasound guidance, the micropuncture wire passed easily then I placed a 6-Malian 70 cm sheath the left common femoral artery after I predilated the artery using 6-Malian dilator. Subsequently the 035 wire was advanced all the way to be descending aorta. I did selective right SFA using 035 stiff Glidewire with a backup support of 5-Malian rim catheter. Then the sheath was advanced over the wire and catheter to the right common femoral artery. I did right lower eccentric angiogram which revealed three-vessel runoff below the knee bilaterally with severe disease involving the right SFA in the mid and proximal portion and intermediate lesion involving the right external iliac artery. At that point I did start anticoagulation using heparin with continuous ACT monitoring. I did wire the right SFA using an 014 wire which was advanced all the way to the right popliteal. Then I did atherectomy of the right SFA using the Hawk 1 device. And the vascular ultrasound was performed and showed a diameter of the SFA on 5 mm. Chocolate balloon angioplasty was performed using 5 mm balloon before I did balloon angioplasty using a drug-coated balloon with a good angiographic results. Regarding the right external iliac artery I did gradient measurement and that came in to be significant and about 70 mmHg. I did decide to balloon angioplasty and stent the right external iliac artery. I did balloon angioplasty using 7 mm balloon then I deployed a 8 x 40 mm balloon which was self-expandable and the balloon was positioned under fluoroscopy guidance and deployed under fluoroscopy guidance was postdilated dictation using 7 mm balloon again. The final angiogram showed an excellent angiographic results and the procedure was completed without any complications. After that I did exchange my long sheath into short sheath using 035 stiff Glidewire before I did selective left common femoral artery angiogram. The procedure was completed without any complication Postprocedure management #1 dual antiplatelet therapy #2 aggressive cholesterol control #3 risk factors modification #4 follow-up with the patient
[2022-10-17] MEDS ORDERED: SODIUM CHLORIDE 0.9% 1,000 ML in EMPTY BAG 1 BAG IV SCH (13:30)
--- NOTE | 2022-10-17 14:35 | IR ---
EXAMINATION TYPE: IR service captain iliac DATE OF EXAM: 10/17/2022 COMPARISON: NONE HISTORY: Fluoroscopy time. Fluoroscopy was provided to the referring clinician.
[2022-10-17] MEDS ORDERED: hydrALAZINE HCL 20 MG/ML 1 ML VIAL ONE (14:54)
[2022-10-17] MEDS ORDERED: hydrALAZINE HCL 20 MG/ML 1 ML VIAL IVP STA (15:00)
[2022-10-17 15:54] LABS: Glucose,Whole Blood 60 mg/dL (70-110)
[2022-10-17 16:46] LABS: Glucose,Whole Blood 71 mg/dL (70-110)
[2022-10-17 20:44] LABS: Glucose,Whole Blood 85 mg/dL (70-110)
[2022-10-17 22:52] VITALS: BP 133/84; PULSE 78; RESP 18; TEMP 99.7
== END 2022-10-17 22:00 | disposition home or self-care (01) ==
LOC: CATHCVL 08:51 → 6NMEDSUR 13:05 → CATHCVL 22:00
PROVIDERS: ATTEND Internal Medicine Interventional Cardiology
DX: I70.213 Atherosclerosis of native arteries of extremities with intermittent claudication, bilateral legs (principal); E11.9 Type 2 diabetes mellitus without complications; E78.5 Hyperlipidemia, unspecified; F17.210 Nicotine dependence, cigarettes, uncomplicated; I25.10 Atherosclerotic heart disease of native coronary artery without angina pectoris; I34.0 Nonrheumatic mitral (valve) insufficiency
CPT/HCPCS: 37221; 37225; 37252; 80048; 85025; C1894 ×3; C1769 ×4; C1725; C1714; C1753; C2623 ×2; C1874; J2250; J0360; J2001; J3010; J1644

== ENCOUNTER 2023-03-18 19:15 | Emergency (ER) | payer MEDICARE, OTHER ==
[2023-03-18 19:27] VITALS: BP 107/57; PULSE 65; TEMP 97.9
[2023-03-18 20:21] LABS: Basophils % (A) 0 %; Eosinophils # (A) 0.1 k/uL (0-0.7); Eosinophils % (A) 2 %; HCT 38.4 % (34.0-46.0); Lymphocytes # (A) 3.2 k/uL (1.0-4.8); Lymphocytes % (A) 44 %; MCH 30.7 pg (25.0-35.0); MCHC 31.2 g/dL (31.0-37.0); MCV 98.6 fL (80.0-100.0); Mean Platelet Volume 8.6; Monocytes # (A) 0.3 k/uL (0-1.0); Monocytes % (A) 4 %; Neutrophils # (A) 3.6 k/uL (1.3-7.7); Neutrophils % (A) 49 %; Platelet Count 268 k/uL (150-450); RBC 3.89 m/uL (3.80-5.40); RDW 14.1 % (11.5-15.5); WBC 7.4 k/uL (3.8-10.6)
--- NOTE | 2023-03-18 20:35 | ED ---
Extremity Problem HPI - General Chief complaint: Extremity Problem,Nontraumatic Stated complaint: Toe Injury Time Seen by Provider: 03/18/23 20:24 Source: patient, family, RN notes reviewed, old records reviewed Mode of arrival: ambulatory Limitations: no limitations - History of Present Illness Initial comments: This is a pleasant nontoxic-appearing 57-year-old female that presents to the emergency room with injury to her right fourth toe. States that she stubbed it 3 days ago. She does have neuropathy and states that she has no pain however she noticed some bleeding at the cuticle and discoloration to the toe which prompted her to come in and be evaluated. MD Complaint: other (4th right toe pain) -: days(s) (3) Location: right, lower extremity, toe (4th) History of Same: No Radiation: none Severity scale (1-10): 0 Associated Symptoms: denies other symptoms - Related Data Home Medications Medication Instructions Recorded Confirmed Latanoprost [Xalatan 0.005%] 1 drop BOTH EYES HS 08/02/21 01/02/23 Gabapentin 800 mg PO BID 09/27/22 01/02/23 Insulin Aspart [NovoLOG] 5 units SQ [id number] 09/27/22 01/02/23 Insulin Degludec [Tresiba] 20 units SQ QAM 09/27/22 01/02/23 Linaclotide [Linzess] 290 mcg PO DAILY 09/27/22 01/02/23 Metoclopramide [Reglan] 10 mg PO [facility] 09/27/22 01/02/23 Pantoprazole [Protonix] 40 mg PO DAILY 09/27/22 12/31/22 Atorvastatin [Lipitor] 80 mg PO HS 10/08/22 01/02/23 Clopidogrel [Plavix] 75 mg PO DAILY 10/08/22 01/02/23 INSULIN ASPART (NovoLOG) [NovoLOG See Protocol SQ [facility] 12/31/22 12/31/22 (formulary)] Aspirin 81 mg PO DAILY 01/02/23 01/02/23 Previous Rx's Medication Instructions Recorded Aspirin 81 mg PO DAILY #90 tab 10/11/22 Allergies Allergy/AdvReac Type Severity Reaction Status Date / Time No Known Allergies Allergy Verified 12/31/22 11:02 Review of Systems ROS Statement: Those systems with pertinent positive or pertinent negative responses have been documented in the HPI. ROS Other: All systems not noted in ROS Statement are negative. Past Medical History Past Medical History: Diabetes Mellitus, GERD/Reflux, Hyperlipidemia, Hypertension, Sleep Apnea/CPAP/BIPAP, Vascular Disorder Additional Past Medical History / Comment(s): supposed to use C-PAP, no longer needs BP med History of Any Multi-Drug Resistant Organisms: None Reported Past Surgical History: Section, Heart Catheterization Additional Past Surgical History / Comment(s): Atherectomy LFA,PTBA SFA w/ Angiogram, cyst from Ovary removed,SABINO,ABD. AORTAGRAM WITH RUN OFF,COLONOSCOPY,Ovary removed,SABINO Past Anesthesia/Blood Transfusion Reactions: No Reported Reaction Past Psychological History: Anxiety, Depression Smoking Status: Former smoker - Past Family History Father Family Medical History: Cancer Additional Family Medical History / Comment(s): LUNG CANCER General Exam Limitations: no limitations General appearance: alert, in no apparent distress Head exam: Present: atraumatic Eye exam: Present: normal appearance. Absent: scleral icterus, conjunctival injection, periorbital swelling Neck exam: Absent: meningismus Respiratory exam: Absent: respiratory distress, accessory muscle use Cardiovascular Exam: Present: regular rate Extremities exam: Present: normal capillary refill. Absent: pedal edema Right Foot/Toe exam: Present: ecchymosis (4th digit , dried blood noted at cuticle). Absent: deformity, puncture wound, foreign body, calcaneal tenderness, tenderness at base of 5th metatarsal, nail avulsion, subungual hematoma Neurovascular tendon exam: Present: no vascular compromise. Absent: abnormal cap refill, extremity cold to touch, foot drop Neurological exam: Present: alert, oriented X3 Psychiatric exam: Present: normal affect, normal mood Skin exam: Present: warm, dry, normal color. Absent: cyanosis, diaphoretic, petechiae, pallor Course Vital Signs 03/18/23 03/18/23 19:23 21:32 Temperature 97.9 F Pulse Rate 65 Respiratory 16 18 Rate Blood Pressure 107/57 O2 Sat by Pulse 98 Oximetry Medical Decision Making - Medical Decision Making X-ray interpreted by me shows no evidence of fracture. Radiologist interpretation no acute displaced fracture evident in the right foot. Sánchez's toe is present. Joint spaces are preserved. Overlying soft tissue is unremarkable. Labs were drawn in triage ordered by another provider with no concerning abnormalities. This appears to be a contusion. Patient offered pain medication and declined states she has no pain. Patient was instructed to soak the foot in warm soapy water twice a day and place a thin layer of Neosporin over the cuticle. Return to the emergency room with any new or concerning symptoms. Follow-up with her primary care doctor next week. Patient has a history of diabetes, hypertension, GERD, anxiety, depression Case discussed with Dr. Diana Was pt. sent in by a medical professional or institution (, [facility], NATIONAL ACCOUNT REPRESENTATIVE, urgent care, hospital, or group home...) When possible be specific @ -No Did you speak to anyone other than the patient for history (EMS, parent, family, police, friend...)? What history was obtained from this source @ -No Did you review nursing and triage notes (agree or disagree)? Why? @ -No evidence of necrosis. Patient denies any pain. States that she stubbed her toe a few days ago. Were old charts reviewed (outside hosp., previous admission, EMS record, old EKG, old radiological studies, urgent care reports/EKG's, group home records)? Report findings @ -No old charts were reviewed Differential Diagnosis (chest pain, altered mental status, abdominal pain women, abdominal pain men, vaginal bleeding, weakness, fever, dyspnea, syncope, headache, dizziness, GI bleed, back pain, seizure, CVA, palpatations, mental health, musculoskeletal)? @ -Contusion, fracture, ulcer, laceration, cellulitis EKG interpreted by me (3pts min.). @ -n/a X-rays interpreted by me (1pt min.). @ -yes as above CT interpreted by me (1pt min.). @ -None done U/S interpreted by me (1pt. min.). @ -None done What testing was considered but not performed or refused? (CT, X-rays, U/S, labs)? Why? @ -None What meds were considered but not given or refused? Why? @ -Patient was offered pain medication and declined Did you discuss the management of the patient with other professionals (professionals i.e. [facility], NATIONAL ACCOUNT REPRESENTATIVE, lab, RT, psych nurse, social worker masters, water proofer, teacher, prison officer, case managers)? Give summary @ -No Was smoking cessation discussed for >3mins.? @ -No Was critical care preformed (if so, how long)? @ -No Were there social determinants of health that impacted care today? How? (Homelessness, low income, unemployed, alcoholism, drug addiction, transportation, low edu. Level, literacy, decrease access to med. care, fdc, rehab)? @ -No Was there de-escalation of care discussed even if they declined (Discuss DNR or withdrawal of care, Hospice)? DNR status @ -No What co-morbidities impacted this encounter? (DM, HTN, Smoking, COPD, CAD, Cancer, CVA, ARF, Chemo, Hep., AIDS, mental health diagnosis, sleep apnea, morbid obesity)? @ -Diabetes, hypertension, GERD, anxiety, depression Was patient admitted / discharged? Hospital course, mention meds given and route, prescriptions, significant lab abnormalities, going to OR and other pertinent info. @ -Discharged Undiagnosed new problem with uncertain prognosis? @ -No Drug Therapy requiring intensive monitoring for toxicity (Heparin, Nitro, Insulin, Cardizem)? @ -No Were any procedures done? @ -No Diagnosis/symptom? @ -Toe contusion, abrasion Acute, or Chronic, or Acute on Chronic? @ -Acute Uncomplicated (without systemic symptoms) or Complicated (systemic symptoms)? @ -Uncomplicated Side effects of treatment? @ -No Exacerbation, Progression, or Severe Exacerbation? @ -No Poses a threat to life or bodily function? How? (Chest pain, [place], [place], pneumonia, PE, COPD, DKA, ARF, appy, cholecystitis, CVA, Diverticulitis, Homicidal, Suicidal, threat to staff... and all critical care pts) @ -No - Lab Data Result diagrams: 03/18/23 19:58 03/18/23 19:58 Lab Results 03/18/23 03/18/23 03/18/23 Range/Units 19:45 19:58 19:58 WBC 7.4 (3.8-10.6) k/uL RBC 3.89 (3.80-5.40) m/uL Hgb 12.0 (11.4-16.0) gm/dL Hct 38.4 (34.0-46.0) % MCV 98.6 (80.0-100.0) fL MCH 30.7 (25.0-35.0) pg MCHC 31.2 (31.0-37.0) g/dL RDW 14.1 (11.5-15.5) % Plt Count 268 (150-450) k/uL MPV 8.6 Neutrophils % 49 % Lymphocytes % 44 % Monocytes % 4 % Eosinophils % 2 % Basophils % 0 % Neutrophils # 3.6 (1.3-7.7) k/uL Lymphocytes # 3.2 (1.0-4.8) k/uL Monocytes # 0.3 (0-1.0) k/uL Eosinophils # 0.1 (0-0.7) k/uL Basophils # 0.0 (0-0.2) k/uL PT 9.9 (9.0-12.0) sec INR 0.9 (<1.2) APTT 25.2 (22.0-30.0) sec Sodium (137-145) mmol/L Potassium (3.5-5.1) mmol/L Chloride (98-107) mmol/L Carbon Dioxide (22-30) mmol/L Anion Gap mmol/L BUN (7-17) mg/dL Creatinine (0.52-1.04) mg/dL Est GFR (CKD-EPI)AfAm (>60 ml/min/1.73 sqM) Est GFR (CKD-EPI)NonAf (>60 ml/min/1.73 sqM) Glucose (74-99) mg/dL Plasma Lactic Acid Lai 2.0 (0.7-2.0) mmol/L Calcium (8.4-10.2) mg/dL Total Bilirubin (0.2-1.3) mg/dL AST (14-36) U/L ALT (4-34) U/L Alkaline Phosphatase (38-126) U/L Total Protein (6.3-8.2) g/dL Albumin (3.5-5.0) g/dL 03/18/23 Range/Units 19:58 WBC (3.8-10.6) k/uL RBC (3.80-5.40) m/uL Hgb (11.4-16.0) gm/dL Hct (34.0-46.0) % MCV (80.0-100.0) fL MCH (25.0-35.0) pg MCHC (31.0-37.0) g/dL RDW (11.5-15.5) % Plt Count (150-450) k/uL MPV Neutrophils % % Lymphocytes % % Monocytes % % Eosinophils % % Basophils % % Neutrophils # (1.3-7.7) k/uL Lymphocytes # (1.0-4.8) k/uL Monocytes # (0-1.0) k/uL Eosinophils # (0-0.7) k/uL Basophils # (0-0.2) k/uL PT (9.0-12.0) sec INR (<1.2) APTT (22.0-30.0) sec Sodium 139 (137-145) mmol/L Potassium 4.2 (3.5-5.1) mmol/L Chloride 107 (98-107) mmol/L Carbon Dioxide 21 L (22-30) mmol/L Anion Gap 11 mmol/L BUN 10 (7-17) mg/dL Creatinine 0.48 L (0.52-1.04) mg/dL Est GFR (CKD-EPI)AfAm >90 (>60 ml/min/1.73 sqM) Est GFR (CKD-EPI)NonAf >90 (>60 ml/min/1.73 sqM) Glucose 219 H (74-99) mg/dL Plasma Lactic Acid Lai (0.7-2.0) mmol/L Calcium 9.7 (8.4-10.2) mg/dL Total Bilirubin 0.5 (0.2-1.3) mg/dL AST 20 (14-36) U/L ALT 17 (4-34) U/L Alkaline Phosphatase 63 (38-126) U/L Total Protein 7.3 (6.3-8.2) g/dL Albumin 4.4 (3.5-5.0) g/dL Disposition Clinical Impression: Injury of toe on right foot, Abrasion of toe Disposition: HOME SELF-CARE Condition: Good Instructions (If sedation given, give patient instructions): Foot Sprain (ED), Abrasion (ED) Additional Instructions: Rest ice and elevate foot. Soak in warm soapy water twice a day. Please a thin layer of Neosporin and cover with Band-Aid for the next 2 days. Return to the emergency room with any new or concerning symptoms or signs of infection including fever redness or drainage. Is patient prescribed a controlled substance at d/c from ED?: No Referrals: Remy Llanes MD [Primary Care Provider] - 1-2 days Time of Disposition: 21:22
[2023-03-18 20:37] LABS: INR 0.9 (<1.2); Partial Thromboplastin Time 25.2 sec (22.0-30.0); Prothrombin Time 9.9 sec (9.0-12.0)
[2023-03-18 20:43] LABS: ALT 17 U/L (4-34); AST 20 U/L (14-36); African American GFR (CKD) >90 (>60 ml/min/1.73 sqM); Albumin 4.4 g/dL (3.5-5.0); Alkaline Phosphatase 63 U/L (38-126); Anion Gap 11 mmol/L; Blood Urea Nitrogen 10 mg/dL (7-17); Calcium 9.7 mg/dL (8.4-10.2); Carbon Dioxide 21 mmol/L (22-30); Chloride 107 mmol/L (98-107); Glucose 219 mg/dL (74-99); Non-African American GFR(CKD) >90 (>60 ml/min/1.73 sqM); Potassium 4.2 mmol/L (3.5-5.1); Sodium 139 mmol/L (137-145); Total Bilirubin 0.5 mg/dL (0.2-1.3); Total Protein 7.3 g/dL (6.3-8.2)
--- NOTE | 2023-03-18 21:15 | XR ---
EXAMINATION TYPE: XR foot limited RT DATE OF EXAM: 03/18/2023 CLINICAL HISTORY: Injury with pain TECHNIQUE: Portable frontal and lateral images of the right foot are obtained. COMPARISON: None FINDINGS: There is no acute displaced fracture evident in the right foot. Sánchez's toe is present. J oint spaces are preserved. Overlying soft tissue is unremarkable. IMPRESSION: As above.
[2023-03-18] MEDS ORDERED: BACITRACIN OINT 1 EACH PACKET TOPICAL ONE (21:24)
[2023-03-18 21:33] VITALS: RESP 18
== END 2023-03-18 21:34 | disposition home or self-care (01) ==
LOC: EC 19:15
DX: S90.414A Abrasion, right lesser toe(s), initial encounter (principal); E11.9 Type 2 diabetes mellitus without complications; K21.9 Gastro-esophageal reflux disease without esophagitis; E78.5 Hyperlipidemia, unspecified; I10 Essential (primary) hypertension; F41.9 Anxiety disorder, unspecified; F32.A Depression, unspecified; Z87.891 Personal history of nicotine dependence; Z79.4 Long term (current) use of insulin; Z79.82 Long term (current) use of aspirin; Z79.899 Other long term (current) drug therapy; W22.8XXA Striking against or struck by other objects, initial encounter
CPT/HCPCS: 36415; 80053; 83605; 85025; 85610; 85730; 99283

== ENCOUNTER → 2023-06-18 | Outpatient (CLI) | payer MEDICARE, OTHER ==
[2023-06-18 21:23] LABS: Microalbumin Creatinine Ratio <10 mg/g Cr (0-30)
[2023-06-18 21:30] LABS: Chol/HDL Ratio 2.54 Ratio; LDL Cholesterol,Calculated 84.7 mg/dL (0.0-131.0); VLDL Calculation 19.02 mg/dL (5.00-40.00)
[2023-06-18 21:33] LABS: ALT 12 U/L (8-44); AST 17 U/L (13-35); Albumin 4.4 d/dL (3.8-4.9); Albumin/Globulin Ratio 1.63 Ratio (1.60-3.17); Alkaline Phosphatase 71 U/L (41-126); Blood Urea Nitrogen 9.2 mg/dL (9.0-27.0); Calcium 10.3 mg/dL (8.7-10.3); Carbon Dioxide 19.4 mmol/L (21.6-31.8); Chloride 111 mmol/L (96-109); Globulin 2.7 d/dL (1.6-3.3); Glucose 44 mg/dL (70-110); Potassium 4.2 mmol/L (3.5-5.5); Sodium 143 mmol/L (135-145); Total Bilirubin 0.3 mg/dL (0.3-1.2); Total Protein 7.1 d/dL (6.2-8.2)
--- NOTE | 2023-06-19 20:34 | MM ---
Reason for Exam: Screening (asymptomatic). Last mammogram was performed 1 year(s) and 2 month(s) ago. Patient History: Menarche at age 18. First Full-Term at age 23. Left ovary removed at age 30. Postmenopausal. 2001, Cyst Aspiration on the Left side. Maternal aunt had breast cancer at or over age 50. Maternal aunt had breast cancer at or over age 50. Risk Values: Leslie 5 year model risk: 1.1%. NCI Lifetime model risk: 6.1%. Prior Study Comparison: 03/29/2022 Bilateral Screening Mammogram, [facility]. Tissue Density: The breast tissue is heterogeneously dense. This may lower the sensitivity of mammography. Findings: Analyzed By CAD. There is no suspicious group of microcalcifications or new suspicious mass in either breast. Overall Assessment: Incomplete: need additional imaging evaluation, BI-RAD 0 Management: Diagnostic Breast Ultrasound of the left breast. Given the patient's dense tissues and as the patient is now feeling that the left breast is larger than the right. [facility] will attempt to contact patient to return for supplemental views and ultrasound if indicated. Electronically signed and approved by: Miller Sarah M.D. Radiologist
== END | disposition home or self-care (01) ==
LOC: RADMAMWWP 12:53
PROVIDERS: ATTEND Family Medicine
DX: Z12.31 Encounter for screening mammogram for malignant neoplasm of breast (principal); E10.65 Type 1 diabetes mellitus with hyperglycemia; Z78.0 Asymptomatic menopausal state; Z80.3 Family history of malignant neoplasm of breast
CPT/HCPCS: 77063; 77067; 80053; 80061; 82043; 82570; 83036; 84443

== ENCOUNTER → 2023-06-21 | Outpatient (CLI) | payer MEDICARE, OTHER ==
--- NOTE | 2023-06-21 13:07 | USB ---
Reason for Exam: Additional evaluation requested from abnormal screening. Patient History: Menarche at age 18. First Full-Term at age 23. Left ovary removed at age 30. Postmenopausal. 2001, Cyst Aspiration on the Left side. Maternal aunt had breast cancer at or over age 50. Maternal aunt had breast cancer at or over age 50. Risk Values: Leslie 5 year model risk: 1.1%. NCI Lifetime model risk: 6.1%. Prior Study Comparison: 03/29/2022 Bilateral Screening Mammogram, [facility]. 06/18/2023 Bilateral MG 3D screening mammo w/cad, [facility]. Findings: The whole breast of the left breast, the axilla of the left breast and the retroareolar of the left breast were scanned. No solid or cystic masses are identified.. Overall Assessment: Negative, BI-RAD 1 Management: Screening Mammogram of both breasts in 1 year. A clinical breast exam by your physician is recommended on an annual basis and results should be correlated with mammographic findings. This exam should not preclude additional follow-up of suspicious palpable abnormalities. Results were given to the patient verbally at the time of exam. Electronically signed and approved by: Cash Betancourt M.D. Radiologis
== END | disposition home or self-care (01) ==
LOC: RADUSWWP 12:46
PROVIDERS: ATTEND Family Medicine
DX: R92.8 Other abnormal and inconclusive findings on diagnostic imaging of breast (principal); Z78.0 Asymptomatic menopausal state; Z80.3 Family history of malignant neoplasm of breast

== ENCOUNTER → 2025-03-03 | Outpatient (CLI) | payer MEDICARE ==
[2025-03-03 10:00] LABS: African American GFR (CKD) >90 (>60 ml/min/1.73 sqM); Blood Urea Nitrogen 15 mg/dL (7-17); Non-African American GFR(CKD) >90 (>60 ml/min/1.73 sqM)
--- NOTE | 2025-03-03 15:29 | CT ---
EXAMINATION TYPE: CT angio abd aorta w/Runoff DATE OF EXAM: 03/03/2025 COMPARISON: NONE CLINICAL INDICATION: Female, 59 years old with history of I73.9 PERIPHERAL VASCULAR DISEASE, UNSPECIF IED, PAD, TECHNIQUE: CTA scan of the abdomen and pelvis extending into bilateral lower extremities is performed without an d with IV Contrast, patient injected with 100 ml mL of Isovue 370., (none if empty) Oral contrast used: (none if empty) CT DLP: 2133 mGycm, Automated exposure control for dose reduction was used. Three-D reconstructed images created on an independent workstation and reviewed. FINDINGS: VASCULAR: Patent single bilateral renal arteries. Patent celiac artery and SMA. Patent REYNA. No signif icant stenosis. Mild peripheral calcified plaque infrarenal abdominal aorta. There is a right common iliac artery stent graft which appears patent. Moderate mixed peripheral plaque in the left common il iac artery causing stenosis approaching 50%. No significant plaque or stenosis in the external iliac arteries bilaterally. Moderate mid plaque bilateral common femoral arteries extending into the superf icial femoral arteries. Moderate to severe peripheral calcified plaque along the course of the right superficial femoral zuri ry extending into the popliteal artery. Areas of significant stenosis are likely present. Similar fin dings in the left lower extremity. Satisfactory bifurcation bilaterally. Symmetric two-vessel flow in the mid to distal legs. LUNG BASES: No significant abnormality is appreciated. LIVER/GB: No significant abnormality is appreciated. PANCREAS: No significant abnormality is seen. SPLEEN: No significant abnormality is seen. ADRENALS: No significant abnormality is seen. KIDNEYS: No significant abnormality is seen. BOWEL: No significant abnormality is seen. UTERUS/ADNEXA: No gross abnormality seen. LYMPH NODES: No greater than 1cm abdominal or pelvic lymph nodes are appreciated. OSSEOUS STRUCTURES: Moderate degenerative change in both hips. LOWER EXTREMITIES: Moderate degenerative change in both knees. OTHER: No significant additional abnormality is seen. IMPRESSION: Patent right common iliac artery stent. Fairly moderate to severe mixed plaque left commo n iliac artery with stenosis approaching but just under 50%. Symmetric moderate to severe peripheral vascular disease beginning superficial femoral artery bilaterally extending distally causing symmetri c slightly poor arterial perfusion to the bilateral distal lower extremities. [facility], , 03/03/2025 3:26 PM
== END | disposition home or self-care (01) ==
LOC: RADCTMAIN 08:50
PROVIDERS: ATTEND Internal Medicine Interventional Cardiology
DX: I73.9 Peripheral vascular disease, unspecified (principal); I65.23 Occlusion and stenosis of bilateral carotid arteries
CPT/HCPCS: 82565; 84520; 75635; Q9967